=== PATIENT | female | born 2000 | race Caucasian/White ===

== ENCOUNTER 2020-12-26 10:37 | Emergency (ER) | payer SELFPAY ==
[2020-12-26 12:29] LABS: Urine Blood 3+ (Negative); Urine Glucose Negative (Negative); Urine Protein 1+ (Negative); Urine Specific Gravity 1.025 (1.005-1.030); Urine pH 8.5 (5.0-7.0)
[2020-12-26 12:30] LABS: Absolute Lymphocytes (CBC) 2.9 K/uL (0.7-4.9); Basophils % 0.6 % (0-1.3); Hematocrit 39.7 % (36.0-45.0); Lymphocytes % 26.3 % (15.3-44.8); MPV 8.8 fL (7.6-11.3); RBC Red Blood Cell Count 4.63 M/uL (3.86-4.86)
[2020-12-26] MEDS ORDERED: MORPHINE 4 MG/ML SYR ONE (12:50)
[2020-12-26] MEDS ORDERED: ONDANSETRON 4 MG/2 ML VIAL ONE (12:50)
[2020-12-26 13:04] LABS: Urine Specific Gravity/Preg 1.025 (1.005-1.030)
--- NOTE | 2020-12-26 13:07 | RAD REPORT ---
EXAM DESCRIPTION: US - Transvaginal Study Probe - 12/26/2020 12:17 pm CLINICAL HISTORY: Pelvic pain COMPARISON: none FINDINGS: The uterus measures 8 x 3 x 4 centimeters. The endometrial stripe is normal thickness. An IUD is present within predominantly the lower uterine segment. A small portion of the IUD is present within the uterine fundus. A fibroid is not seen. Neither ovary clearly seen secondary to overlying bowel gas. The right and left adnexa appear unremar kable. No significant free fluid is seen. IMPRESSION: An IUD is present within predominantly the lower uterine segment of the endometrium
[2020-12-26 13:30] LABS: ALT/SGPT 19 U/L (12-78); AST/SGOT 14 U/L (15-37); Albumin 4.1 g/dL (3.4-5.0); Alkaline Phosphatase 83 U/L (45-117); BUN Blood Urea Nitrogen 12 mg/dL (7-18); Bicarbonate 25 mmol/L (21-32); Bilirubin Total 0.5 mg/dL (0.2-1.0); Glucose Level 110 mg/dL (74-106); Potassium 3.8 mmol/L (3.5-5.1); Sodium Level 143 mmol/L (136-145)
[2020-12-26] MEDS ORDERED: METOCLOPRAMIDE 10 MG/2mL INJ ONE (13:46)
[2020-12-26] MEDS ORDERED: NA CHLORIDE 0.9% 250 ML ONE (13:46)
--- NOTE | 2020-12-26 15:05 | ER ---
Nurse's Notes [facility] Name: Bret Lord Age: 20 yrs Sex: Female : 2000 Arrival Date: 12/26/2020 Time: 10:45 Bed 18 Private MD: Diagnosis: Pelvic and perineal pain;Urinary tract infection, site not specified Presentation: 12/26 10:45 Chief complaint: EMS states: EMS was called when the pt had a syncopal/ seizure tr6 episode. pts friend at bedside reports that the pt was caught when she 'lost consciousness' and placed on the couch. EMS reports that pt has also been c/o lower abdominal and lower back pain and believes that her mirena (IUD) has dislodged because she has "been bleeding a lot since placed." pts friend at bedside reports that the discharge/blood is foul smelling. pt has a hx of anixety and epilepsy. Coronavirus screen: Client denies travel out of the [place] in the last 14 days. Ebola Screen: Patient negative for fever greater than or equal to 101.5 degrees Fahrenheit, and additional compatible Ebola Virus Disease symptoms Patient denies exposure to infectious person. Patient denies travel to an Ebola-affected area in the 21 days before illness onset. Initial Sepsis Screen: Does the patient meet any 2 criteria? No. Patient's initial sepsis screen is negative. Does the patient have a suspected source of infection?. Risk Assessment: Do you want to hurt yourself or someone else? Patient reports no desire to harm self or others. Onset of symptoms was December 26, 2020. 10:45 Method Of Arrival: EMS: [facility] tr6 10:45 Acuity: KAREN 3 tr6 Triage Assessment: 10:50 General: Appears in no apparent distress. comfortable, well groomed, Behavior is calm, tr6 flat, quiet. Pain: Complains of pain in c/o lower abdominal pain and lower back pain since mirena has been placed about 7 months ago. EENT: No deficits noted. Neuro: Level of Consciousness is obeys commands, lethargic, Oriented to person, place, time, situation, Appropriate for age Energy Specialist are equal bilaterally Moves all extremities. Speech is normal, slow responses. Facial symmetry appears normal, Intact. Cardiovascular: No deficits noted. Respiratory: No deficits noted. GI: No deficits noted. GI: No deficits noted. Reports lower abdominal pain, cramping. : Parent/caregiver report the patient having cramping pain vaginal bleeding that is foul smelling per pts friend. Derm: No deficits noted. Musculoskeletal: No deficits noted. - Immunization history:: Adult Immunizations up to date. - Social history:: Smoking status: Patient reports the use of cigarette tobacco products. Screenin:19 Abuse screen: Denies threats or abuse. Denies injuries from another. Nutritional tr6 screening: No deficits noted. Tuberculosis screening: No symptoms or risk factors identified. Fall Risk Fall in past 12 months (25 points). Assessment: 10:53 General: see triage assessment. tr6 12:00 Reassessment: Patient and/or family updated on plan of care and expected duration. Pain tr6 level reassessed. Patient is alert, oriented x 3, equal unlabored respirations, skin warm/dry/pink. pt more alert than on arrival. 13:00 Reassessment: Patient and/or family updated on plan of care and expected duration. Pain tr6 level reassessed. 14:00 Reassessment: Patient appears in no apparent distress at this time. No changes from tr6 previously documented assessment. Patient and/or family updated on plan of care and expected duration. Pain level reassessed. Patient is alert, oriented x 3, equal unlabored respirations, skin warm/dry/pink. 15:18 Reassessment: Patient and/or family updated on plan of care and expected duration. Pain tr6 level reassessed. results reviewed with pt by FLAKO Guaman. discharge instructions reviewed with pt. f/u care understood by pt. Vital Signs: 10:45 BP 138 / 92; Pulse 83; Resp 20; Pulse Ox 100% ; tr6 ED Course: 10:45 Patient arrived in ED. tr6 10:49 Triage completed. tr6 10:53 Maintain EMS IV. Dressing intact. Site clean \\T\\ dry. Gauge \\T\\ site: Left AC 20. tr 6 10:54 Deniz Monson PA is PHCP. [facility] 10:54 Fantasma Kong MD is Attending Physician. jmm 12:17 Transvaginal Study Probe In Process Unspecified. EDMS 12:24 CMP Sent. tr6 12:24 CBC with Diff Sent. tr6 15:04 Stefany Roberts MD is Referral Physician. delisa 15:19 No provider procedures requiring assistance completed. IV discontinued, intact, tr6 bleeding controlled, No redness/swelling at site. Pressure dressing applied. 15:20 Arm band placed on right wrist. tr6 15:20 Patient has correct armband on for positive identification. Fall risk band placed. tr6 Placed in gown. Bed in low position. Call light in reach. Side rails up X2. Administered Medications: 12:37 Drug: Zofran (Ondansetron) 4 mg Route: IVP; Site: left antecubital; tr6 13:31 Follow up: Response: Anxiety decreased; Nausea unchanged tr6 12:38 Drug: morphine 4 mg Route: IVP; Site: left antecubital; tr6 13:32 Follow up: Response: No adverse reaction; Pain is decreased tr6 13:33 Drug: Reglan (metoCLOPramide) 10 mg Route: IVP; Site: left antecubital; tr6 15:21 Follow up: Response: No adverse reaction; Nausea is decreased tr6 13:33 Drug: NS 0.9% 250 ml Route: IV; Rate: bolus; Site: left antecubital; tr6 15:21 Follow up: Response: No adverse reaction; IV Intake: 1000ml tr6 Intake: 15:21 IV: 1000ml; Total: 1000ml. tr6 Outcome: 15:04 Discharge ordered by . delisa 15:20 Discharged to home with friend. tr6 15:20 Condition: improved 15:20 Discharge instructions given to patient. 15:22 Patient left the ED. tr6 Signatures: Dispatcher [employer] EDMS Deniz Monson PA PA jmm Ramnanan, Tiffany, RN RN tr6
--- NOTE | 2020-12-26 15:05 | EDPHYS ---
Physician Documentation [facility] Name: Bret Lord Age: 20 yrs Sex: Female : 2000 Arrival Date: 12/26/2020 Time: 10:45 Bed 18 Private MD: ED Physician Fantasma Kong HPI: 12/26 15:02 This 20 yrs old Female presents to ER via EMS with complaints of pelvic pain. [facility] [place] 15:02 The patient presents with pelvic pain. Onset: The symptoms/episode began/occurred jm gradually, 7 month(s) ago. Modifying factors: The symptoms are alleviated by nothing, the symptoms are aggravated by nothing. Associated signs and symptoms: Pertinent positives: dysuria. The patient has not experienced similar symptoms in the past. - Immunization history:: Adult Immunizations up to date. - Social history:: Smoking status: Patient reports the use of cigarette tobacco products. ROS: 15:02 Constitutional: Negative for fever, chills, and weight loss, Cardiovascular: Negative [facility] for chest pain, palpitations, and edema, Respiratory: Negative for shortness of breath, cough, wheezing, and pleuritic chest pain. 15:02 : Positive for urinary symptoms. 15:02 All other systems are negative. Exam: 15:02 Constitutional: This is a well developed, well nourished patient who is awake, alert, jmm and in no acute distress. Head/Face: atraumatic. Eyes: EOMI, no conjunctival erythema appreciated ENT: Moist Mucus Membranes Neck: Trachea midline, Supple Chest/axilla: Normal chest wall appearance and motion. Cardiovascular: Regular rate and rhythm. No edema appreciated Respiratory: Normal respirations, no respiratory distress appreciated Abdomen/GI: Non distended, soft Back: Normal ROM Skin: General appearance color normal MS/ Extremity: Moves all extremities, no obvious deformities appreciated, no edema noted to the lower extremities Neuro: Awake and alert, normal gait Psych: Behavior is normal, Mood is normal, Patient is cooperative and pleasant Vital Signs: 10:45 BP 138 / 92; Pulse 83; Resp 20; Pulse Ox 100% ; tr6 MDM: 11:41 Patient medically screened. [facility] [place] 15:03 Data reviewed: vital signs, nurses notes. Counseling: I had a detailed discussion with delisa the patient and/or guardian regarding: the historical points, exam findings, and any diagnostic results supporting the discharge/admit diagnosis, lab results, radiology results, the need for outpatient follow up, to return to the emergency department if symptoms worsen or persist or if there are any questions or concerns that arise at home. ED course: Patient is alert and non toxic in appearance in the ED. Patient is advised to follow up with pcp and otherwise given strict return precautions. patient understood and agrees with the plan of care. . 12/26 11:53 Order name: CBC with Diff; Complete Time: 12:56 [facility] 12/26 11:53 Order name: CMP; Complete Time: 13:31 [facility] 12/26 12:17 Order name: Transvaginal Study Probe; Complete Time: 13:10 EDWA 12/26 12:29 Order name: Urine Dipstick-Ancillary; Complete Time: 12:56 [facility] 12/26 12:50 Order name: Urine --Ancillary (enter results); Complete Time: 13:10 12/26 11:53 Order name: Saline Lock; Complete Time: 12:24 [facility] 12/26 11:53 Order name: Urine Dipstick-Ancillary (obtain specimen); Complete Time: 12:30 [facility] 12/26 11:53 Order name: Urine Test (obtain specimen); Complete Time: 12:30 jm Administered Medications: 12:37 Drug: Zofran (Ondansetron) 4 mg Route: IVP; Site: left antecubital; tr6 13:31 Follow up: Response: Anxiety decreased; Nausea unchanged tr6 12:38 Drug: morphine 4 mg Route: IVP; Site: left antecubital; tr6 13:32 Follow up: Response: No adverse reaction; Pain is decreased tr6 13:33 Drug: Reglan (metoCLOPramide) 10 mg Route: IVP; Site: left antecubital; tr6 15:21 Follow up: Response: No adverse reaction; Nausea is decreased tr6 13:33 Drug: NS 0.9% 250 ml Route: IV; Rate: bolus; Site: left antecubital; tr6 15:21 Follow up: Response: No adverse reaction; IV Intake: 1000ml tr6 Disposition: 12/27 06:15 Co-signature as Attending Physician, Fantasma Kong MD I agree with the assessment and kdr plan of care. Disposition: 12/26/20 15:04 Discharged to Home. Impression: Pelvic and perineal pain, Urinary tract infection, site not specified. - Condition is Stable. - Discharge Instructions: Pelvic Pain, Female, Urinary Tract Infection, Adult. - Prescriptions for Zofran ODT 4 mg Oral tablet,disintegrating - place 1 tablet by TRANSLINGUAL route every 4-6 hours; 20 tablet. Tylenol- Codeine #3 300-30 mg Oral Tablet - take 1 tablet by ORAL route every 4-6 hours As needed; 20 tablet. Bactrim DS 800- 160 mg Oral Tablet - take 1 tablet by ORAL route every 12 hours for 10 days; 20 tablet. - Medication Reconciliation Form, Thank You Letter, Antibiotic Education, Prescription Opioid Use form. - Follow up: Stefany Roberts MD; When: 2 - 3 days; Reason: Recheck today's complaints, Continuance of care, Re-evaluation by your physician. Signatures: Dispatcher [employer] [facility] Fantasma Kong MD MD kdr Mickail, Joel, PA PA Eliane Monroe RN RN tr6 Corrections: (The following items were deleted from the chart) 12/26 12:17 11:53 Pelvis Complete+US.RAD.BRZ ordered. [facility] 15:22 15:04 12/26/2020 15:04 Discharged to Home. Impression: Pelvic and perineal pain; tr6 Urinary tract infection, site not specified. Condition is Stable. Forms are Medication Reconciliation Form, Thank You Letter, Antibiotic Education, Prescription Opioid Use. Follow up: Stefany Roberts; When: 2 - 3 days; Reason: Recheck today's complaints, Continuance of care, Re-evaluation by your physician. delisa
[2020-12-26 15:43] VITALS: BP 138/92; O2SAT 100
== END 2020-12-26 15:22 | disposition home or self-care (01) ==
LOC: ER 10:37
DX: N39.0 Urinary tract infection, site not specified (principal); F17.210 Nicotine dependence, cigarettes, uncomplicated
CPT/HCPCS: 36415; 76830; 80053; 81003; 81025; 85025; 96374; 96375; 99284; J2405; J2765; J7050

== ENCOUNTER 2021-02-21 12:17 | Emergency (ER) | payer SELFPAY ==
[2021-02-21 13:00] LABS: Urine Blood Trace-intact (Negative); Urine Glucose Negative (Negative); Urine Protein Negative (Negative); Urine Specific Gravity >=1.030 (1.005-1.030)
--- NOTE | 2021-02-21 14:31 | ER ---
Nurse's Notes [facility] Name: Bret Lord Age: 20 yrs Sex: Female : 2000 Arrival Date: 02/21/2021 Time: 12:20 Bed 26 Private MD: Diagnosis: Vaginal Discharge Presentation: 02/21 12:29 Chief complaint: Patient states: vaginal burning and odorous discharge that have been ss ongoing for months, just getting worse. Pt believes she has Bacterial Vaginosis. Coronavirus screen: Client denies travel out of the [place] in the last 14 days. Ebola Screen: Patient denies exposure to infectious person. Patient denies travel to an Ebola-affected area in the 21 days before illness onset. Initial Sepsis Screen: Does the patient meet any 2 criteria? No. Patient's initial sepsis screen is negative. Does the patient have a suspected source of infection? No. Patient's initial sepsis screen is negative. Risk Assessment: Do you want to hurt yourself or someone else? Patient reports no desire to harm self or others. Onset of symptoms is unknown. 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 - Social history:: Smoking status: Patient reports the use of cigarette tobacco products, denies chronic smoking, but will smoke occasionally. Screenin:53 Abuse screen: Denies threats or abuse. Denies injuries from another. Nutritional ld1 screening: No deficits noted. Tuberculosis screening: No symptoms or risk factors identified. Fall Risk None identified. Assessment: 12:53 General: Appears in no apparent distress. comfortable, Behavior is calm, cooperative, ld1 appropriate for age. Pain: Denies pain. Neuro: Level of Consciousness is awake, alert, obeys commands, Oriented to person, place, time, situation, Appropriate for age. Cardiovascular: Capillary refill < 3 seconds Patient's skin is warm and dry. Respiratory: Airway is patent Respiratory effort is even, unlabored, Respiratory pattern is regular, symmetrical. GI: Abdomen is flat, non-distended. : Urine is clear, Reports burning with urination. : Reports urinary frequency. EENT: No signs and/or symptoms were reported regarding the EENT system. Derm: No signs and/or symptoms reported regarding the dermatologic system. Musculoskeletal: No signs and/or symptoms reported regarding the musculoskeletal system. 13:45 Reassessment: Patient appears in no apparent distress at this time. No changes from ld1 previously documented assessment. Patient and/or family updated on plan of care and expected duration. Pain level reassessed. 14:28 Reassessment: Patient appears in no apparent distress at this time. Patient denies pain ld1 at this time. Vital Signs: 12:29 BP 119 / 69; Pulse 63; Resp 14; Temp 98.9; Pulse Ox 100% on R/A; Weight 60.78 kg; ss Height 5 ft. 1 in. (154.94 cm); Pain 6/10; 12:53 BP 112 / 56; Pulse 76; Resp 18; Pulse Ox 100% ; ld1 13:45 BP 118 / 62; Pulse 80; Resp 18; Pulse Ox 100% on R/A; ld1 14:29 BP 122 / 78; Pulse 70; Resp 18; Pulse Ox 100% on R/A; ld1 12:29 Body Mass Index 25.32 (60.78 kg, 154.94 cm) ED Course: 12:20 Patient arrived in ED. wm 12:32 Triage completed. ss 12:33 Arm band placed on right wrist. ss 12:34 Viridiana Starks, RN is Primary Nurse. ld1 12:53 Patient has correct armband on for positive identification. Bed in low position. Call ld1 light in reach. Side rails up X2. Pulse ox on. NIBP on. 12:53 No provider procedures requiring assistance completed. ld1 12:56 Deniz Monson PA is PHCP. [facility] 12:56 Nevin De La Paz MD is Attending Physician. jmm 14:30 Tano Ramirez MD is Referral Physician. jmm 14:39 Patient did not have IV access during this emergency room visit. ld1 Administered Medications: 14:27 Drug: Rocephin (cefTRIAXone) 1 grams Route: IM; Site: right gluteus; ld1 14:28 Follow up: Response: No adverse reaction ld1 14: Drug: AZITHromycin 1 grams Route: PO; ld1 14:28 Follow up: Response: No adverse reaction ld1 14:27 Drug: DiFLUcan (fluconazole) 150 mg Route: PO; ld1 14:28 Follow up: Response: No adverse reaction ld1 Outcome: 14:30 Discharge ordered by MD. hercules 14:38 Discharged to home ambulatory. ld1 14:38 Condition: stable 14:38 Discharge instructions given to patient, Instructed on discharge instructions, follow up and referral plans. medication usage, Demonstrated understanding of instructions, follow-up care, medications. 14:39 Patient left the ED. ld1 Signatures: Deniz Monson PA PA jmm Smirch, Shelby, RN RN Viridiana Starks RN RN ld1 Miranda Mejía
--- NOTE | 2021-02-21 14:31 | EDPHYS ---
Physician Documentation [facility] Name: Bret Lord Age: 20 yrs Sex: Female : 2000 Arrival Date: 02/21/2021 Time: 12:20 Bed 26 Private MD: ED Physician Nevin De La Paz HPI: 02/21 14:26 This 20 yrs old Female presents to ER via Ambulatory with complaints of Pain jmm With Urination - ODER WITH DISCHARGE. 14:26 The patient presents with vaginal discharge. Onset: The symptoms/episode began/occurred jmm gradually. Modifying factors: The symptoms are alleviated by nothing, the symptoms are aggravated by nothing. Patient complains of vaginal odor along with dysuria. Denies fever, vomiting, pelvic pain. . 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 - Social history:: Smoking status: Patient reports the use of cigarette tobacco products, denies chronic smoking, but will smoke occasionally. ROS: 14:26 Constitutional: Negative for fever, chills, and weight loss, Cardiovascular: Negative jmm for chest pain, palpitations, and edema, Respiratory: Negative for shortness of breath, cough, wheezing, and pleuritic chest pain. 14:26 : Positive for urinary symptoms. 14:26 All other systems are negative. Exam: 14:26 Constitutional: This is a well developed, well nourished patient who is awake, alert, jmm and in no acute distress. Head/Face: atraumatic. Eyes: EOMI, no conjunctival erythema appreciated ENT: Moist Mucus Membranes Neck: Trachea midline, Supple Chest/axilla: Normal chest wall appearance and motion. Cardiovascular: Regular rate and rhythm. No edema appreciated Respiratory: Normal respirations, no respiratory distress appreciated Abdomen/GI: Non distended, soft Back: Normal ROM Skin: General appearance color normal 14:26 Neuro: Awake and alert, normal gait Psych: Behavior is normal, Mood is normal, Patient is cooperative and pleasant 14:26 : Pelvic Exam: External exam: is normal, Speculum exam: normal findings. Vital Signs: 12:29 BP 119 / 69; Pulse 63; Resp 14; Temp 98.9; Pulse Ox 100% on R/A; Weight 60.78 kg; ss Height 5 ft. 1 in. (154.94 cm); Pain 6/10; 12:53 BP 112 / 56; Pulse 76; Resp 18; Pulse Ox 100% ; ld1 13:45 BP 118 / 62; Pulse 80; Resp 18; Pulse Ox 100% on R/A; ld1 14:29 BP 122 / 78; Pulse 70; Resp 18; Pulse Ox 100% on R/A; ld1 12:29 Body Mass Index 25.32 (60.78 kg, 154.94 cm) ss MDM: 13:26 Patient medically screened. [facility] 14:28 Data reviewed: vital signs, nurses notes. Counseling: I had a detailed discussion with delisa the patient and/or guardian regarding: the historical points, exam findings, and any diagnostic results supporting the discharge/admit diagnosis, lab results, the need for outpatient follow up, to return to the emergency department if symptoms worsen or persist or if there are any questions or concerns that arise at home. ED course: Patient is alert and non toxic in appearance in the ED. No signs of sepsis. Advised to follow up with terrapin fisher for further evaluation. Patient understood and agrees with the plan of care. . 02/21 13:00 Order name: Urine Dipstick-Ancillary; Complete Time: 13:02 EDDC 02/21 13:20 Order name: Urine --Ancillary; Complete Time: 13:47 [facility] 02/21 13:28 Order name: GC (GONORR/CHLAMYDIA) Probe [facility] 02/21 13:28 Order name: Wet Prep [facility] 02/21 13:28 Order name: GC (Jamarcus/Chl) Probe CX/URE [facility] 02/21 13:28 Order name: Wet Prep; Complete Time: 14:05 EDDC Administered Medications: 14:27 Drug: Rocephin (cefTRIAXone) 1 grams Route: IM; Site: right gluteus; ld1 14:28 Follow up: Response: No adverse reaction ld1 14:27 Drug: AZITHromycin 1 grams Route: PO; ld1 14:28 Follow up: Response: No adverse reaction ld1 14:27 Drug: DiFLUcan (fluconazole) 150 mg Route: PO; ld1 14:28 Follow up: Response: No adverse reaction ld1 Disposition: 02/21/21 14:30 Discharged to Home. Impression: Vaginal Discharge. - Condition is Stable. - Prescriptions for Metronidazole 500 mg Oral Tablet - take 1 tablet by ORAL route 2 times per day; 14 tablet. - Medication Reconciliation Form, Thank You Letter, Antibiotic Education, Prescription Opioid Use form. - Follow up: Tano Ramirez MD; When: 1 - 2 days; Reason: Recheck today's complaints, Continuance of care, Re-evaluation by your physician. Signatures: Dispatcher [employer] EDMS Deniz Monson PA PA jmm Smirch, Shelby, RN RN Viridiana Starks RN RN ld1 Corrections: (The following items were deleted from the chart) 14:39 14:30 02/21/2021 14:30 Discharged to Home. Impression: Vaginal Discharge. Condition is ld1 Stable. Forms are Medication Reconciliation Form, Thank You Letter, Antibiotic Education, Prescription Opioid Use. Follow up: Tano Ramirez; When: 1 - 2 days; Reason: Recheck today's complaints, Continuance of care, Re-evaluation by your physician. delisa
[2021-02-21] MEDS ORDERED: FLUCONAZOLE 100 MG TAB ONE (14:39)
[2021-02-21] MEDS ORDERED: AZITHROMYCIN 250 MG TAB ONE (14:39)
[2021-02-21] MEDS ORDERED: CEFTRIAXONE 1000 MG/VIAL ONE (14:39)
[2021-02-21 14:44] VITALS: TEMP 98.9; O2SAT 100
[2021-02-21 14:48] VITALS: BP 122/78
[2021-02-25 04:11] LABS: C.trachomatis RNA,TMA Not Detected (Not Detected)
== END 2021-02-21 14:39 | disposition home or self-care (01) ==
LOC: ER 12:17
DX: N89.8 Other specified noninflammatory disorders of vagina (principal); R30.0 Dysuria; F31.9 Bipolar disorder, unspecified; F17.210 Nicotine dependence, cigarettes, uncomplicated
CPT/HCPCS: 81003; 81025; 87210; 87490; 87590